=== PATIENT | female | born 1935 | race Caucasian/White ===

== ENCOUNTER 2017-07-21 11:08 | Emergency (ER) | payer MEDICARE, BC ==
[~2017-07-21] VITALS: Ht 154.9 cm; Wt 68.0 kg
[2017-07-21] MEDS ORDERED: PREMARIN PO (11:33)
[2017-07-21] MEDS ORDERED: SPIRONOLACTONE PO (11:33)
[2017-07-21] MEDS ORDERED: ESCI10TA PO (11:33)
[2017-07-21] MEDS ORDERED: LOSARTAN PO (11:33)
[2017-07-21] MEDS ORDERED: ONDANSETRON IV *ER 4 MG/2 ML VIAL IV ONE (11:44)
[2017-07-21] MEDS ORDERED: IV NORMAL SALINE 500 ML IV ONE (11:45)
[2017-07-21] MEDS ORDERED: PANTOPRAZOLE SODIUM IV 40 MG in IV DEXTROSE 5% 100 ML IV ONE (12:00)
[2017-07-21 12:13] LABS: BASOPHILS % (AUTO) 0.3 % (0.0-2.0); EOSINOPHILS % (AUTO) 0.2 % (0.0-7.0); HEMATOCRIT 46.3 % (37-47); LYMPHOCYTES # (AUTO) 0.2 K/UL (0.8-4.8); LYMPHOCYTES % (AUTO) 2.5 % (20.5-51.5); MEAN CORPUSCULAR HEMOGLOBIN 30.6 UUG (27.0-31.0); MEAN CORPUSCULAR HGB CONC 32 g/dL (32.0-37.0); MEAN CORPUSCULAR VOLUME 94.5 FL (81.0-99.0); MONOCYTES # (AUTO) 0.3 K/UL (0.1-1.30); MONOCYTES % (AUTO) 3.4 % (0.0-11.0); NEUTROPHILS % (AUTO) 93.6 % (38.5-71.5); PLATELET COUNT (AUTO) 256 K/UL (150-450); WHITE BLOOD COUNT (AUTO) 8.5 K/UL (4.0-11.2)
[2017-07-21 12:16] LABS: CARBON DIOXIDE 24 mmol/L (21-32); CHLORIDE 104 mmol/L (98-107); CREATININE 1.1 mg/dL (0.6-1.3); GLUCOSE 162 mg/dL (74-106); POTASSIUM 3.7 mmol/L (3.5-5.1); UREA NITROGEN, BLOOD 19 mg/dL (7-18)
[2017-07-21 12:21] LABS: ALANINE AMINOTRANSFERASE 30 U/L (14-59); ALKALINE PHOSPHATASE 58 U/L (50-136); ASPARTATE AMINOTRANSFERASE 20 U/L (15-37); BILIRUBIN,TOTAL 0.5 mg/dL (0.2-1.0); TOTAL PROTEIN, SERUM 7.4 g/dL (6.4-8.2)
[2017-07-21] MEDS ORDERED: PANTOPRAZOLE SODIUM 40 MG VIAL ONE (12:22)
[2017-07-21] MEDS ORDERED: ONDANSETRON 4 MG/2 ML VIAL ONE (12:23)
--- NOTE | 2017-07-21 12:30 | NUR ---
pt is in room #1b. dr cancino evaluated the pt.
[2017-07-21 12:38] LABS: CREATINE KINASE, TOTAL 76 U/L (26-192); LIPASE 65 U/L (73-393)
--- NOTE | 2017-07-21 13:53 | NUR ---
PT WAS D/C TO HOME AFTER DR MAR RE-EVALUATION. D/C INSTRUCTIONS GIVEN TO THE PT.
[2017-07-21 13:55] VITALS: BP 131/78
== END 2017-07-21 13:56 | disposition home or self-care (01) ==
LOC: ER 11:20
DX: K52.9 Noninfective gastroenteritis and colitis, unspecified (principal); I10 Essential (primary) hypertension; Z88.0 Allergy status to penicillin
CPT/HCPCS: 36415; 74022; 80053; 82550; 83690; 84484; 85025; 93005; 96365; 96366; 96375; 99285; A4663; C9113; J2405; J7030; 70030-TC

== ENCOUNTER 2018-02-17 08:26 | Inpatient (IN) | payer MEDICARE, BC ==
[~2018-02-17] VITALS: Ht 154.9 cm; Wt 80.3 kg
[~2018-02-17 08:26] MED LIST: ESCI10TA PO; LOSARTAN PO; PREMARIN PO; SPIRONOLACTONE PO
--- NOTE | 2018-02-17 08:40 | NUR ---
Dr Jhaveri at the bedside for MSE.
[2018-02-17] MEDS ORDERED: IV NS 1000 ML 1,000 ML IV ONE (08:45)
[2018-02-17] MEDS ORDERED: ONDANSETRON IV *ER 4 MG/2 ML VIAL IV ONE ×2 (08:45→09:22)
[2018-02-17] MEDS ORDERED: PANTOPRAZOLE SODIUM IV 40 MG in IV DEXTROSE 5% 100 ML IV ONE (08:45)
[2018-02-17] MEDS ORDERED: PANTOPRAZOLE SODIUM 40 MG VIAL ONE (08:54)
[2018-02-17] MEDS ORDERED: ONDANSETRON 4 MG/2 ML VIAL ONE ×2 (08:54→09:25)
[2018-02-17 09:21] LABS: BASOPHILS # (AUTO) 0.1 K/uL (0.0-8.0); BASOPHILS % (AUTO) 0.5 % (0.0-2.0); EOSINOPHILS # (AUTO) 0.1 K/uL (0.0-0.7); EOSINOPHILS % (AUTO) 0.9 % (0.0-7.0); HEMATOCRIT 41.7 % (31.2-41.9); HEMOGLOBIN 14.3 g/dL (10.9-14.3); LYMPHOCYTES # (AUTO) 0.6 K/uL (20.0-40.0); LYMPHOCYTES % (AUTO) 5.5 % (20.5-51.5); MEAN CORPUSCULAR HEMOGLOBIN 32.9 uug (24.7-32.8); MEAN CORPUSCULAR HGB CONC 34 g/dL (32.3-35.6); MEAN CORPUSCULAR VOLUME 95.9 fL (75.5-95.3); MONOCYTES # (AUTO) 0.6 K/uL (2.0-10.0); MONOCYTES % (AUTO) 5.1 % (0.0-11.0); NEUTROPHILS # (AUTO) 10.1 K/uL (1.8-8.9); PLATELET COUNT (AUTO) 279 K/uL (179-408); RED BLOOD CELL COUNT(AUTO) 4.34 MIL/uL (3.63-4.92); WHITE BLOOD COUNT (AUTO) 11.5 K/uL (3.8-11.8)
[2018-02-17 09:24] LABS: POTASSIUM 3.6 mmol/L (3.5-5.1)
[2018-02-17 09:30] LABS: CARBON DIOXIDE 23 mmol/L (21-32); CHLORIDE 103 mmol/L (98-107); CREATININE 0.9 mg/dL (0.6-1.3); GLUCOSE 162 mg/dL (74-106); UREA NITROGEN, BLOOD 17 mg/dL (7-18)
[2018-02-17 09:33] LABS: LIPASE 85 U/L (73-393)
[2018-02-17 09:34] LABS: MAGNESIUM 1.3 mg/dL (1.8-2.4)
[2018-02-17 09:37] LABS: ALANINE AMINOTRANSFERASE 27 U/L (14-59); ALKALINE PHOSPHATASE 56 U/L (50-136); ASPARTATE AMINOTRANSFERASE 18 U/L (15-37); BILIRUBIN,TOTAL 0.5 mg/dL (0.2-1.0); TOTAL PROTEIN, SERUM 7.4 g/dL (6.4-8.2)
[2018-02-17 09:39] LABS: CREATINE KINASE, TOTAL 72 U/L (26-192)
[2018-02-17] MEDS ORDERED: MAGNESIUM SULFATE 2 GM in IV DEXTROSE 5% 100 ML IV ONE (10:00)
[2018-02-17] MEDS ORDERED: MAGNESIUM SULFATE 1 GM/2 ML VIAL ONE (10:04)
--- NOTE | 2018-02-17 10:30 | NUR ---
Pt able to drink 5 oz of water. Denies n/v so far.
[2018-02-17] MEDS ORDERED: IV NS 1000 ML 1,000 ML IV PRN (10:45)
[2018-02-17] MEDS ORDERED: METOCLOPRAMIDE HCL 10 MG/2 ML VIAL IV ONE (10:45)
[2018-02-17] MEDS ORDERED: METOCLOPRAMIDE HCL 10 MG/2 ML VIAL ONE (10:46)
--- NOTE | 2018-02-17 11:30 | NUR ---
Report given to alexis CORTES RN.
[2018-02-17] MEDS ORDERED: ONDANSETRON 4 MG/2 ML VIAL IV PRN (12:45)
[2018-02-17] MEDS ORDERED: MORPHINE SULFATE 2 MG/1 ML DISP.SYRIN IV PRN (12:45)
[2018-02-17] MEDS ORDERED: ACETAMINOPHEN 325 MG TABLET PO PRN (12:45)
[2018-02-17 12:55] VITALS: BP 122/65
--- NOTE | 2018-02-17 12:55 | NUR ---
Received this admission from ER per jarrett, this 82 yo female, with the chief complaint of nausea/vomiting and diarrhea, with the diagnosis of Intractable Gastritis.. Transferred to bed comfortably. Routine admission care rendered. Alert, oriented x 4, able to move all extremities, generally weak. IVF continued. Dr. Ely informed of admission
--- NOTE | 2018-02-17 13:30 | NUR ---
Full liquids ordered but patient prefers ice water at this time, tolerated
[2018-02-17] MEDS: POTASSIUM CHLORIDE 20 MEQ in IV 1/2NS 1000 ML 1,000 ML IV PRN (15:55)
--- NOTE | 2018-02-17 15:55 | NUR ---
IVF with KCL started, infusing well. Spouse at bedside, supportive, expressed concern
[2018-02-17 16:33] VITALS: BP 128/63
[2018-02-17 17:53] LABS: *BILIRUBIN,URIN NEGATIVE (NEGATIVE); *BLOOD, URINE 1+ (NEGATIVE); *CLARITY,URINE CLEAR (CLEAR); *COLOR,URINE YELLOW (YELLOW); *KETONES,URINE TRACE (NEGATIVE); *PROTEIN,URINE NEGATIVE (NEGATIVE); *UROBILINOGEN,URINE 0.2 E.U./dl (NORMAL); LEUKOCYTE ESTERASE ,URINE TRACE (NEGATIVE); NITRITE, URINE NEGATIVE (NEGATIVE); UGLUCOSE NEGATIVE (NEGATIVE)
[2018-02-17 18:10] LABS: WBC,URINE 0-3 /HPF (0-3)
[2018-02-17 18:11] LABS: MUCUS,URINE FEW /LPF (0-FEW); SQUAMOUS EPITHELIAL CELL,UR FEW /HPF (NONE SEEN)
--- NOTE | 2018-02-17 18:47 | NUR ---
Kept dry and comfortable. Diane THOMAS.
[2018-02-17] MEDS ORDERED: Z GUARD REMEDY PASTE 57 GM TUBE TOP PRN (19:00)
--- NOTE | 2018-02-17 20:00 | NUR ---
OBSERVED TO BE AWAKE AND ALERT WITH AT BEDSIDE. NO S/S OF DISTRESS AT THIS TIME. SAFETY ENVIRONMENT PROVIDED. WILL CONTINUE TO MONITOR CLOSELY.
[2018-02-17 20:42] VITALS: BP 112/47
[2018-02-18 00:05] VITALS: BP 128/66
[2018-02-18 05:06] VITALS: BP 127/61
--- NOTE | 2018-02-18 05:27 | NUR ---
Pt noted to have slept comfortably throughout the night. No N/V or diarrhea noted at this time. IVF infusing as ordered. Bed in low, locked position with bed alarm on. Call light within reach. Will endorse accordingly.
[2018-02-18] MEDS: PANTOPRAZOLE SODIUM 40 MG TABLET.DR PO SCH (06:07)
[2018-02-18] MEDS: POTASSIUM CHLORIDE 20 MEQ in IV 1/2NS 1000 ML 1,000 ML IV PRN (06:44)
[2018-02-18 06:49] LABS: BASOPHILS % (AUTO) 0.3 % (0.0-2.0); EOSINOPHILS # (AUTO) 0.1 K/uL (0.0-0.7); EOSINOPHILS % (AUTO) 1.2 % (0.0-7.0); LYMPHOCYTES # (AUTO) 0.5 K/uL (20.0-40.0); LYMPHOCYTES % (AUTO) 12.3 % (20.5-51.5); MEAN CORPUSCULAR HGB CONC 34 g/dL (32.3-35.6); MEAN CORPUSCULAR VOLUME 96.1 fL (75.5-95.3); MONOCYTES # (AUTO) 0.3 K/uL (2.0-10.0); MONOCYTES % (AUTO) 7.4 % (0.0-11.0); NEUTROPHILS # (AUTO) 3.5 K/uL (1.8-8.9); NEUTROPHILS % (AUTO) 78.8 % (38.5-71.5); PLATELET COUNT (AUTO) 201 K/uL (179-408); RED BLOOD CELL COUNT(AUTO) 3.68 MIL/uL (3.63-4.92)
[2018-02-18 06:58] LABS: HEMATOCRIT 35.4 % (31.2-41.9); HEMOGLOBIN 12.1 g/dL (10.9-14.3); WHITE BLOOD COUNT (AUTO) 4.4 K/uL (3.8-11.8)
[2018-02-18 07:13] LABS: ALANINE AMINOTRANSFERASE 19 U/L (14-59); ALKALINE PHOSPHATASE 36 U/L (50-136); ASPARTATE AMINOTRANSFERASE 16 U/L (15-37); BILIRUBIN,TOTAL 0.3 mg/dL (0.2-1.0); CARBON DIOXIDE 25 mmol/L (21-32); CHLORIDE 107 mmol/L (98-107); CREATININE 0.8 mg/dL (0.6-1.3); GLUCOSE 116 mg/dL (74-106); MAGNESIUM 1.6 mg/dL (1.8-2.4); PHOSPHOROUS 2.2 mg/dL (2.5-4.9); POTASSIUM 3.9 mmol/L (3.5-5.1); TOTAL PROTEIN, SERUM 5.5 g/dL (6.4-8.2); UREA NITROGEN, BLOOD 11 mg/dL (7-18)
[2018-02-18 07:18] LABS: THYROID STIMULATING HORMONE 0.909 mIU/mL (0.358-3.740)
[2018-02-18] MEDS ORDERED: IV NORMAL SALINE 100 ML ONE (08:03)
[2018-02-18] MEDS ORDERED: IOHEXOL 300MG/ML 100 ML INFUS..BTL ONE (08:03)
[2018-02-18] MEDS ORDERED: SWABABLE VALVE TRANSFER SET EA MC ONE (08:03)
[2018-02-18] MEDS: ESCITALOPRAM OXALATE 10 MG TABLET PO SCH (08:46)
[2018-02-18 11:36] VITALS: BP 110/55
[2018-02-18] MEDS ORDERED: LEVOFLOXACIN 500 MG/D5W 500 MG in PREMIXED 1 EACH IV SCH (12:45)
[2018-02-18] MEDS ORDERED: NEUTRA PHOS PACKET PO ONE (12:45)
[2018-02-18] MEDS ORDERED: LEVOFLOXACIN 500 MG/D5W 500 MG in PREMIXED 1 EACH IV ONE (14:00)
[2018-02-18] MEDS: METRONIDAZOLE 500 MG/NS 100ML 500 MG in PREMIXED 1 EACH IV SCH ×2 (14:03→21:02)
[2018-02-18 15:36] VITALS: BP 108/57
--- NOTE | 2018-02-18 18:35 | NUR ---
PT IS RESTING IN BED WITH FAMILY AT THE BEDSIDE. PT LEFT ARM INFILTRATED, ARM ELEVATED, ICE APPLIED, REDNESS HAS REDUCED. PT C/O 2/10 PAIN, RECEIVED WITH ICE. PT HAS NO SIGNS OF RESPIRATORY DISTRESS AT THIS TIME. CALM, COOPERATIVE, AMBULATORY, AOX4. CONTINUE TO MONITOR PT.
--- NOTE | 2018-02-18 19:30 | NUR ---
Received patient laying comfortably in bed. Family at bedside. No acute distress noted. A/O x 4. IVF infusing on the right FA # 20 with no reaction. Patient is ambulatory, calls for assistance. No skin issues. C/O of sweating a lot on her head. Bed alarm on. Room is kept clutter free. Bed in low and locked position. Will continue to monitor.
[2018-02-18 20:31] VITALS: BP 124/46
[2018-02-18] MEDS ORDERED: TEMAZEPAM 15 MG CAPSULE PO PRN (21:45)
[2018-02-19 05:36] VITALS: BP 153/63
[2018-02-19] MEDS: PANTOPRAZOLE SODIUM 40 MG TABLET.DR PO SCH (06:03)
[2018-02-19] MEDS: METRONIDAZOLE 500 MG/NS 100ML 500 MG in PREMIXED 1 EACH IV SCH ×2 (06:03→13:09)
--- NOTE | 2018-02-19 06:24 | NUR ---
No changes t/o shift. Patient slept t/o shift. No acute distress noted. No c/o pain or sob. Safety and comfort measures maintained t/o shift. Vital signs stable. All meds given without reaction. All needs met.
--- NOTE | 2018-02-19 08:30 | NUR ---
AWAKE ALERT AND ORIENTED MEDICATED ORALLY FOR C/O HEADACHE AND TOLERATED WELL REMAIN ON ANTIBIOTICS ORDERED WITH NO ADVERSE OR ALLERGIC REACTIONS AT THIS TIME.MADE COMFORTABLE WILL CONTINUE TO OBSERVE.
[2018-02-19] MEDS: ESCITALOPRAM OXALATE 10 MG TABLET PO SCH (08:31)
[2018-02-19] MEDS ORDERED: LEVOFLOXACIN 250MG /D5W 250 MG in PREMIXED 1 EACH IV SCH (09:00)
[2018-02-19 11:49] VITALS: BP 144/61
[2018-02-19] MEDS ORDERED: LEVO500T2 PO (14:46)
[2018-02-19] MEDS ORDERED: ONDA4TAB8 SL (14:46)
[2018-02-19] MEDS ORDERED: PANT20TA2 PO (14:46)
[2018-02-19] MEDS ORDERED: METR500T PO (14:46)
--- NOTE | 2018-02-19 15:40 | NUR ---
PATIENT IS SEEN BY DR WOODWARD WITH ORDER TO DISCHARGE HOME.PATIENT AWARE AND STATED WILL CALL HER DAUGHTER TO PICK HER UP ABOUT 1615.PATIENT DECLINED ME MAKING APPOINTMENT FOR HER STATED WILL WAIT TO GET HER MEDICAL RECORDS AND WILL THEN CALL DR THOMAS FOR APPOINTMENT.
--- NOTE | 2018-02-19 16:20 | NUR ---
PATIENT DISCHARGED PICKED UP BY HER DAUGHTER DYLLAN IN SATISFACTORY CONDITION WITH DISCHARGE INSTRUCTIONS AND PRESCRIPTIONS PATIENT DECLINED FOR ME TO CALL HER DOCTOR STATED WILL CALL AND FOLLOW UP WITH DR THOMAS SHE WAS SEEN AND EDUCATED BY THE [facility] PHARMACIST.
== END 2018-02-19 16:19 | disposition home or self-care (01) | DRG 373 ==
LOC: ER 08:27 → TELE 11:13 → MED 02-18 11:14
PROVIDERS: ADMIT Internal Medicine; ATTEND Internal Medicine
DX: A04.9 Bacterial intestinal infection, unspecified (principal); E83.39 Other disorders of phosphorus metabolism; E86.9 Volume depletion, unspecified; E83.42 Hypomagnesemia; R73.03 Prediabetes; Z90.710 Acquired absence of both cervix and uterus; Z87.891 Personal history of nicotine dependence; E66.9 Obesity, unspecified; Z68.33 Body mass index [BMI] 33.0-33.9, adult; I10 Essential (primary) hypertension; R91.8 Other nonspecific abnormal finding of lung field; F32.9 Major depressive disorder, single episode, unspecified; R93.1 Abnormal findings on diagnostic imaging of heart and coronary circulation; I45.81 Long QT syndrome; M51.36 Other intervertebral disc degeneration, lumbar region
CPT/HCPCS: 36415; 70030-TC; 71045; 83690; 83735; 84100; 84443; 85025; 87086; 93005; 93307; A4663; C9113; J1956; J2405; J2765; J3475; J3480; J3490; J7030; Q9967

== ENCOUNTER 2019-05-21 16:44 | Emergency (ER) | payer MEDICARE, BC ==
[~2019-05-21] VITALS: Ht 154.9 cm; Wt 77.1 kg
[~2019-05-21 16:44] MED LIST changes: +LEVO500T2 PO; +METR500T PO; +ONDA4TAB8 SL; +PANT20TA2 PO
--- NOTE | 2019-05-21 17:03 | NUR ---
PT IS IN ROOM #2B. DR OSPINA EVALUATED THE PT.
[2019-05-21] MEDS ORDERED: OXYCODONE/APAP 5-325 MG TABLET PO ONE (17:45)
[2019-05-21] MEDS ORDERED: OXYCODONE/APAP 5-325 MG TABLET ONE (17:50)
--- NOTE | 2019-05-21 17:52 | NUR ---
PT WAS D/C'd TO HOME. D/C INSTRUCTIONS GIVEN TO THE PT.
[2019-05-21 17:53] VITALS: BP 139/82
== END 2019-05-21 18:04 | disposition home or self-care (01) ==
LOC: ER 16:47
DX: M54.9 Dorsalgia, unspecified (principal); R51 Headache; R10.2 Pelvic and perineal pain; I10 Essential (primary) hypertension; Z88.0 Allergy status to penicillin; Z90.710 Acquired absence of both cervix and uterus; Z79.2 Long term (current) use of antibiotics; Z79.899 Other long term (current) drug therapy; W10.9XXA Fall (on) (from) unspecified stairs and steps, initial encounter; Y93.89 Activity, other specified; Y92.89 Other specified places as the place of occurrence of the external cause; Y99.8 Other external cause status
CPT/HCPCS: 72170; 72220; A4663

== ENCOUNTER 2022-09-30 08:05 | Emergency (ER) | payer MEDICARE, BC ==
[~2022-09-30] VITALS: Ht 154.9 cm; Wt 65.8 kg
[2022-09-30 08:25] LABS: *BILIRUBIN,URIN NEGATIVE (NEGATIVE); *BLOOD, URINE 3+ (NEGATIVE); *CLARITY,URINE CLOUDY (CLEAR); *COLOR,URINE YELLOW (YELLOW); *KETONES,URINE NEGATIVE (NEGATIVE); *UROBILINOGEN,URINE 0.2 E.U./dl (NORMAL); LEUKOCYTE ESTERASE ,URINE 2+ (NEGATIVE); NITRITE, URINE NEGATIVE (NEGATIVE); UGLUCOSE NEGATIVE (NEGATIVE)
[2022-09-30 08:41] LABS: HEMATOCRIT 40.4 % (31.2-41.9); MEAN CORPUSCULAR HEMOGLOBIN 31.3 uug (24.7-32.8); MEAN CORPUSCULAR VOLUME 94.2 fL (75.5-95.3); PLATELET COUNT (AUTO) 244 K/uL (179-408)
[2022-09-30 08:45] LABS: CREATININE 1.1 mg/dL (0.6-1.3)
--- NOTE | 2022-09-30 08:57 | NUR ---
Patient discharged to home in stable condition. Written and verbal after care instructions given. Patient verbalizes understanding of instructions. Stressed follow up or return to ER for worsening s/s.
[2022-09-30] MEDS ORDERED: NITR100C6 PO (08:59)
[2022-09-30 12:15] LABS: RBC,URINE 20-50 /HPF (0-3)
[2022-09-30 12:16] LABS: BACTERIA,URINE FEW /HPF (NONE SEEN); SQUAMOUS EPITHELIAL CELL,UR FEW /HPF (NONE SEEN); WBC,URINE TNTC /HPF (0-3)
== END 2022-09-30 09:06 | disposition home or self-care (01) ==
LOC: ER 08:05
DX: R30.0 Dysuria (principal); N39.0 Urinary tract infection, site not specified; I10 Essential (primary) hypertension; E11.9 Type 2 diabetes mellitus without complications; Z90.710 Acquired absence of both cervix and uterus
CPT/HCPCS: 36415; 85025; A4663

== ENCOUNTER 2022-10-18 15:17 | Emergency (ER) | payer MEDICARE, BC ==
[~2022-10-18] VITALS: Ht 152.4 cm; Wt 72.6 kg
[~2022-10-18 15:17] MED LIST changes: +NITR100C6 PO
[2022-10-18] MEDS ORDERED: FAMOTIDINE. 20 MG/2 ML VIAL IV ONE ×2 (15:45→16:08)
[2022-10-18 16:08] LABS: HEMATOCRIT 41.2 % (31.2-41.9); MEAN CORPUSCULAR HEMOGLOBIN 31.2 uug (24.7-32.8); MEAN CORPUSCULAR VOLUME 95.6 fL (75.5-95.3); PLATELET COUNT (AUTO) 243 K/uL (179-408)
--- NOTE | 2022-10-18 16:13 | NUR ---
PT IS IN ROOM #2B. DR BLOOD EVALUATED THE PT.
[2022-10-18 16:19] LABS: CARBON DIOXIDE 28 mmol/L (21-32); CHLORIDE 105 mmol/L (98-107); CREATININE 0.8 mg/dL (0.6-1.3); GLUCOSE 109 mg/dL (74-106); POTASSIUM 3.9 mmol/L (3.5-5.1); UREA NITROGEN, BLOOD 21 mg/dL (7-18)
[2022-10-18 16:27] LABS: ALANINE AMINOTRANSFERASE 17 U/L (14-59); ALKALINE PHOSPHATASE 69 U/L (50-136); ASPARTATE AMINOTRANSFERASE 14 U/L (15-37); BILIRUBIN,DIRECT 0.2 mg/dL (0.0-0.2); BILIRUBIN,TOTAL 0.6 mg/dL (0.2-1.0); LIPASE 54 U/L (73-393)
[2022-10-18] MEDS ORDERED: MAG HYDROX/AL HYDROX/SIMETH 30 ML LIQUID UDC ONE (17:42)
[2022-10-18] MEDS ORDERED: LIDOCAINE VISCUS 2% 15 ML UDC ONE (17:42)
[2022-10-18] MEDS ORDERED: FAMO-132 PO (17:44)
[2022-10-18] MEDS ORDERED: MAG HYDROX/AL HYDROX/SIMETH 30 ML LIQUID UDC PO ONE (17:45)
[2022-10-18] MEDS ORDERED: LIDOCAINE VISCUS 2% 15 ML UDC MM ONE (17:45)
--- NOTE | 2022-10-18 18:27 | NUR ---
PT WAS D/C'd TO HOME. D/C INSTRUCTIONS GIVEN TO THE PT BY DR BANSAL.
[2022-10-18 18:28] VITALS: BP 128/76
== END 2022-10-18 18:50 | disposition home or self-care (01) ==
LOC: ER 15:21
DX: R10.13 Epigastric pain (principal); R94.31 Abnormal electrocardiogram [ECG] [EKG]; M51.36 Other intervertebral disc degeneration, lumbar region; K57.30 Diverticulosis of large intestine without perforation or abscess without bleeding; Z79.899 Other long term (current) drug therapy; Z90.710 Acquired absence of both cervix and uterus
CPT/HCPCS: 99285; 74176; 96374; 80076; 80048; 83690; 85025; 84484 ×2; 36415; 93005; 83605; J3490; A4663

== ENCOUNTER 2023-02-27 12:18 | Emergency (ER) | payer MEDICARE, BC ==
[~2023-02-27] VITALS: Ht 160 cm; Wt 68.5 kg
[~2023-02-27 12:18] MED LIST changes: +FAMO-132 PO
[2023-02-27] MEDS ORDERED: IV NORMAL SALINE 500 ML BAG IV ONE (12:30)
[2023-02-27] MEDS ORDERED: MORPHINE SULFATE 2 MG/1 ML DISP.SYRIN IV ONE (12:30)
[2023-02-27] MEDS ORDERED: ONDANSETRON 4 MG/2 ML VIAL IV ONE (12:30)
[2023-02-27] MEDS ORDERED: MORPHINE SULFATE 2 MG/1 ML DISP.SYRIN ONE (12:41)
[2023-02-27] MEDS ORDERED: ONDANSETRON 4 MG/2 ML VIAL ONE (12:42)
[2023-02-27] MEDS ORDERED: PROPOFOL 200 MG/20 ML BOTTLE ONE (12:42)
[2023-02-27] MEDS ORDERED: PROPOFOL 200 MG/20 ML BOTTLE IV ONE ×2 (12:45→15:00)
--- NOTE | 2023-02-27 12:50 | NUR ---
AT this time patient prepared for moderate sedation consent obtained and explained to pt. by Dr. Pitts. On youth nutritional monitor saturation of 99% placed on oxygen. RT team at bedside.
--- NOTE | 2023-02-27 12:54 | NUR ---
6mg of propofol administered as ordered. and started placing shoulder back in place. After several attempts procedure done at 1610. Shoulder immobilizer applied. pt's vitals within normal see documentation procedure under moderate sedation.
--- NOTE | 2023-02-27 13:15 | NUR ---
patient received one dose of 60mg. during procedure order 20mg additional dose. The vial was dispose with Annette as witness. System did not allowed to record waited med.
--- NOTE | 2023-02-27 13:36 | NUR ---
DCD instructions provided to pt. who verbalized understanding, daughter at bedside. IV line dcd. shoulder immobilizer in place.
--- NOTE | 2023-02-27 13:54 | NUR ---
Patient left accompanied by daughter, steady gait no dizziness intructed to follow up with PCP. shoulder immobilizer in place. No c/o pain.
[2023-02-27 14:00] VITALS: BP 142/65
== END 2023-02-27 14:01 | disposition home or self-care (01) ==
LOC: ER 12:18
DX: S43.004A Unspecified dislocation of right shoulder joint, initial encounter (principal); Z90.710 Acquired absence of both cervix and uterus; Z79.2 Long term (current) use of antibiotics; Z79.899 Other long term (current) drug therapy; W10.9XXA Fall (on) (from) unspecified stairs and steps, initial encounter; Y93.89 Activity, other specified; Y92.89 Other specified places as the place of occurrence of the external cause; Y99.8 Other external cause status
CPT/HCPCS: 99285; 23650; 73030 ×2; 99152; J2405; J2270; J7040; A4663; G0500; J3490

== ENCOUNTER 2023-09-14 13:40 | Emergency (ER) | payer MEDICARE, BC ==
[~2023-09-14] VITALS: Ht 154.9 cm; Wt 68.0 kg
[2023-09-14] MEDS ORDERED: IBUP-1955 PO (13:56)
[2023-09-14] MEDS ORDERED: CEPH500C2 PO (13:56)
[2023-09-14] MEDS ORDERED: PHEN-704 PO (13:56)
[2023-09-14 14:21] LABS: *BILIRUBIN,URIN NEGATIVE (NEGATIVE); *BLOOD, URINE 1+ (NEGATIVE); *CLARITY,URINE CLEAR (CLEAR); *COLOR,URINE YELLOW (YELLOW); *KETONES,URINE NEGATIVE (NEGATIVE); *PROTEIN,URINE NEGATIVE (NEGATIVE); *UROBILINOGEN,URINE 0.2 E.U./dl (NORMAL); LEUKOCYTE ESTERASE ,URINE TRACE (NEGATIVE); NITRITE, URINE NEGATIVE (NEGATIVE); UGLUCOSE NEGATIVE (NEGATIVE)
[2023-09-14 15:00] LABS: BACTERIA,URINE MODERATE /HPF (NONE SEEN); SQUAMOUS EPITHELIAL CELL,UR MODERATE /HPF (NONE SEEN); URINE AMORPHOUS URATE FEW /HPF; WBC,URINE 0-3 /HPF (0-3)
[2023-09-14 15:12] VITALS: BP 124/78; O2SAT 96
== END 2023-09-14 14:30 | disposition home or self-care (01) ==
LOC: ER 13:40
DX: N39.0 Urinary tract infection, site not specified (principal); R30.0 Dysuria; E11.9 Type 2 diabetes mellitus without complications; Z90.710 Acquired absence of both cervix and uterus; Z79.2 Long term (current) use of antibiotics; Z79.899 Other long term (current) drug therapy
CPT/HCPCS: A4606; A4663

== ENCOUNTER 2024-02-14 17:06 | Emergency (ER) | payer MEDICARE, BC ==
[~2024-02-14] VITALS: Ht 154.9 cm; Wt 68.0 kg
[~2024-02-14 17:06] MED LIST changes: +CEPH500C2 PO; +IBUP-1955 PO; +PHEN-704 PO
[2024-02-14 19:04] LABS: BASOPHILS % (AUTO) 0.5 % (0.0-2.0); EOSINOPHILS # (AUTO) 0.2 K/uL (0.0-0.7); EOSINOPHILS % (AUTO) 4.2 % (0.0-7.0); HEMATOCRIT 37.8 % (31.2-41.9); HEMOGLOBIN 12.7 g/dL (10.9-14.3); LYMPHOCYTES # (AUTO) 1.5 K/uL (0.8-4.8); LYMPHOCYTES % (AUTO) 25.4 % (20.5-51.5); MEAN CORPUSCULAR HEMOGLOBIN 30.9 uug (24.7-32.8); MEAN CORPUSCULAR HGB CONC 34 g/dL (32.3-35.6); MEAN CORPUSCULAR VOLUME 92.3 fL (75.5-95.3); MONOCYTES # (AUTO) 0.4 K/uL (0.1-1.30); MONOCYTES % (AUTO) 7.6 % (0.0-11.0); NEUTROPHILS # (AUTO) 3.6 K/uL (1.8-8.9); NEUTROPHILS % (AUTO) 62.3 % (38.5-71.5); PLATELET COUNT (AUTO) 225 K/uL (179-408); RED BLOOD CELL COUNT(AUTO) 4.09 MIL/uL (3.63-4.92); RED CELL DISTRIBUTION WIDTH 13.3 % (12.3-17.7); WHITE BLOOD COUNT (AUTO) 5.9 K/uL (3.8-11.8)
[2024-02-14 19:05] LABS: DIFFERENTIAL COMMENT 1
[2024-02-14 19:17] LABS: CALCIUM 8.7 mg/dL (8.5-10.1); CREATININE 0.7 mg/dL (0.6-1.3); POTASSIUM 3.9 mmol/L (3.5-5.1)
[2024-02-14 19:24] LABS: ALBUMIN 3.4 g/dL (3.4-5.0); BILIRUBIN,DIRECT 0.1 mg/dL (0.0-0.2); BILIRUBIN,TOTAL 0.5 mg/dL (0.2-1.0); TOTAL PROTEIN, SERUM 6.5 g/dL (6.4-8.2)
[2024-02-14 19:47] LABS: NT-PRO BNP 594 pg/mL (0-125)
[2024-02-14 20:20] LABS: *BILIRUBIN,URIN NEGATIVE (NEGATIVE); *CLARITY,URINE CLEAR (CLEAR); *COLOR,URINE YELLOW (YELLOW); *KETONES,URINE NEGATIVE (NEGATIVE); *PROTEIN,URINE NEGATIVE (NEGATIVE); *UROBILINOGEN,URINE 0.2 E.U./dl (NORMAL); LEUKOCYTE ESTERASE ,URINE NEGATIVE (NEGATIVE); NITRITE, URINE NEGATIVE (NEGATIVE); PH,URINE 5.5 (5.0-8.0); UGLUCOSE NEGATIVE (NEGATIVE)
[2024-02-14 20:22] LABS: *BLOOD, URINE NEGATIVE (NEGATIVE)
[2024-02-14] MEDS ORDERED: MAGN64TA9 PO (21:04)
[2024-02-14 21:47] VITALS: BP 151/89; O2SAT 97
== END 2024-02-14 21:17 | disposition home or self-care (01) ==
LOC: ER 17:07
DX: R42 Dizziness and giddiness (principal); E11.9 Type 2 diabetes mellitus without complications; Z98.890 Other specified postprocedural states; Z79.899 Other long term (current) drug therapy
CPT/HCPCS: 36415; 71045; 72170; 84484; 85025; 93005; A4606; A4663

== ENCOUNTER 2024-10-04 10:00 | Emergency (ER) | payer MEDICARE, BC ==
[~2024-10-04] VITALS: Ht 154.9 cm; Wt 68.0 kg
[~2024-10-04 10:00] MED LIST changes: +MAGN64TA9 PO
[2024-10-04] MEDS ORDERED: PHEN-704 PO (10:41)
[2024-10-04] MEDS ORDERED: CEPH500C2 PO (10:41)
[2024-10-04 10:48] LABS: *BILIRUBIN,URIN NEGATIVE (NEGATIVE); *BLOOD, URINE 3+ (NEGATIVE); *CLARITY,URINE CLEAR (CLEAR); *COLOR,URINE YELLOW (YELLOW); *KETONES,URINE NEGATIVE (NEGATIVE); *PROTEIN,URINE 2+ (NEGATIVE); *UROBILINOGEN,URINE 0.2 E.U./dl (NORMAL); LEUKOCYTE ESTERASE ,URINE 1+ (NEGATIVE); NITRITE, URINE NEGATIVE (NEGATIVE); PH,URINE 5.5 (5.0-8.0); UGLUCOSE NEGATIVE (NEGATIVE)
[2024-10-04 11:26] LABS: BACTERIA,URINE MODERATE /HPF (NONE SEEN); RBC,URINE 50-80 /HPF (0-3); SQUAMOUS EPITHELIAL CELL,UR FEW /HPF (NONE SEEN); WBC,URINE 20-50 /HPF (0-3)
[2024-10-04 12:12] VITALS: BP 134/68; TEMP 98.5; O2SAT 96
== END 2024-10-04 12:13 | disposition home or self-care (01) ==
LOC: ER 10:00
DX: N39.0 Urinary tract infection, site not specified (principal); E11.9 Type 2 diabetes mellitus without complications; Z79.899 Other long term (current) drug therapy; Z87.440 Personal history of urinary (tract) infections; Z88.7 Allergy status to serum and vaccine; Z90.710 Acquired absence of both cervix and uterus
CPT/HCPCS: 86403; 87070; A4606; A4663

== ENCOUNTER 2025-02-05 10:20 | Emergency (ER) | payer MEDICARE, BC ==
[~2025-02-05] VITALS: Ht 157.5 cm; Wt 77.1 kg
[2025-02-05 10:48] LABS: *BILIRUBIN,URIN NEGATIVE (NEGATIVE); *BLOOD, URINE 1+ (NEGATIVE); *CLARITY,URINE CLEAR (CLEAR); *COLOR,URINE YELLOW (YELLOW); *KETONES,URINE NEGATIVE (NEGATIVE); *PROTEIN,URINE NEGATIVE (NEGATIVE); *UROBILINOGEN,URINE 0.2 E.U./dl (NORMAL); LEUKOCYTE ESTERASE ,URINE NEGATIVE (NEGATIVE); NITRITE, URINE NEGATIVE (NEGATIVE); PH,URINE 5.5 (5.0-8.0); UGLUCOSE NEGATIVE (NEGATIVE)
[2025-02-05 11:02] LABS: BACTERIA,URINE FEW /HPF (NONE SEEN); SQUAMOUS EPITHELIAL CELL,UR FEW /HPF (NONE SEEN); URINE AMORPHOUS URATE FEW /HPF; WBC,URINE 0-3 /HPF (0-3)
[2025-02-05] MEDS ORDERED: FOSFOMYCIN TROMETHAMINE 3 GM PACKET ONE (11:44)
[2025-02-05] MEDS: FOSFOMYCIN TROMETHAMINE 3 GM PACKET PO ONE (11:47)
[2025-02-05 12:05] VITALS: BP 141/75; TEMP 97.8; O2SAT 97
== END 2025-02-05 12:06 | disposition home or self-care (01) ==
LOC: ER 10:20
DX: R30.0 Dysuria (principal); E11.9 Type 2 diabetes mellitus without complications; Z79.899 Other long term (current) drug therapy; Z88.7 Allergy status to serum and vaccine; Z90.710 Acquired absence of both cervix and uterus
CPT/HCPCS: A4606; A4663